=== PATIENT | female | born 1975 | race African-American/Black ===

== ENCOUNTER 2016-09-26 11:31 | Inpatient (IN) | payer OTHER ==
[~2016-09-26] VITALS: Wt 58.6 kg
[2016-09-26] VITALS (482 sets, daily range): BP systolic 119–133; BP diastolic 86–98; PULSE 75–86; TEMP 98.5–99.3; O2SAT 76–100
[~2016-09-26 11:31] MED LIST: LEXAPRO 10MG10 MG PO; MELAT3MGTAB
[2016-09-26 12:17] LABS: GRAN # 2.3 (1.4-6.5); GRAN % 76.6 % (42.2-75.2); LYMPH # 0.4 (1.2-3.4); LYMPH % 13.7 % (20.0-51.0); MEAN CELL VOLUME 89 fl (80.0-100.0); MEAN CORPUSCULAR HGB CONC 34 g/dl (33.0-37.0); MEAN PLATELET VOLUME 8.7 fl (7.4-10.4); MONO # 0.2 (0.1-0.6); PLATELET COUNT 212 K/mm3 (130-400); RED BLOOD COUNT 3.65 M/mm3 (4.10-5.30); REDCELL DISTRIBUTION WIDTH-CV 16.6 % (11.5-14.5)
[2016-09-26 12:19] LABS: HEMATOCRIT 32.5 % (37.0-47.0); HEMOGLOBIN 10.9 g/dl (12.5-16.0); MEAN CORPUSCULAR HEMOGLOBIN 30 pg (27.0-31.0)
[2016-09-26 12:22] LABS: PH 5 (5-8); SQUAMOUS EPITHELIAL 0-2 /hpf; URINE APPEARANCE Hazy; URINE BACTERIA None Seen /hpf; URINE BILIRUBIN Negative (NEGATIVE); URINE BLOOD 2+ (NEGATIVE); URINE COLOR Yellow; URINE GLUCOSE Negative (NEGATIVE); URINE KETONE 2+ (NEGATIVE); URINE RBC 0-2 /hpf; URINE UROBILINOGEN Negative (NEGATIVE); URINE WBC 0-2 /hpf
[2016-09-26] MEDS ORDERED: MINIPRESS2 MG (12:29)
[2016-09-26] MEDS ORDERED: DESYREL 50MG50 MG PO (12:30)
[2016-09-26 12:31] LABS: AMPHETAMINE URINE NEGATIVE; BARBITURATES URINE NEGATIVE; BENZODIAZEPINES URINE NEGATIVE; BUPRENORPHINE URINE NEGATIVE; METHADONE URINE NEGATIVE; OPIATES URINE NEGATIVE; OXYCODONE URINE NEGATIVE; PHENCYCLIDINE URINE NEGATIVE; PROPOXYPHENE URINE NEGATIVE; THC CANNABINOIDS URINE NEGATIVE
[2016-09-26] MEDS ORDERED: WELLBUTRIN SR100 M1 PO (12:31)
[2016-09-26 12:32] LABS: ADJUSTED CALCIUM 8.2 mg/dL (8.4-10.2); ALANINE AMINOTRANSFERASE 21 U/L (9-52); ALBUMIN 4.5 gm/dL (3.5-5.0); ALKALINE PHOSPHATASE 90 U/L (50-136); ANION GAP 24 mmol/L (7-16); BILIRUBIN,TOTAL 0.6 mg/dL (0.0-1.0); BLOOD UREA NITROGEN 16 mg/dL (7-17); CALCIUM 8.6 mg/dL (8.4-10.2); CARBON DIOXIDE 16 mmol/L (22-30); CHLORIDE 99 mmol/L (98-107); CREATININE, serum 0.72 mg/dL (0.52-1.25); GLUCOSE 71 mg/dL (74-106); POTASSIUM 3.5 mmol/L (3.4-5.0); SODIUM 139 mmol/L (137-145); TOTAL PROTEIN 8.2 gm/dL (6.4-8.2)
[2016-09-26 12:34] LABS: ACETAMINOPHEN < 10 ug/mL (10-30); SALICYLATE < 1.0 mg/dL
[2016-09-26 13:55] LABS: ARTERIAL BLD GAS O2 SATURATION 92.8 % (92-100); ARTERIAL BLD GAS TCO2 CT 17.2; ARTERIAL BLOOD GAS BASE EXCESS -9.1 (-2-2); ARTERIAL BLOOD GAS HCO3 16.2 meq/L (22-26); ARTERIAL BLOOD GAS PHT 7.31 C (7.35-7.45); ARTERIAL BLOOD GAS PO2 83.7 mmHg (80-100); ARTERIAL BLOOD GAS PO2T 83.7 (80-100); ARTERIAL BLOOD GAS pH 7.31 (7.35-7.45); OXYHEMOGLOBIN 89.8 %
[2016-09-26 13:56] LABS: ATS? YES
[2016-09-27] VITALS (540 sets, daily range): BP systolic 113–131; BP diastolic 69–83; PULSE 69–89; TEMP 98.7–100.2; O2SAT 95–100
[2016-09-27 05:05] LABS: BASO % 0.6 % (0.0-2.0); EOS % 0.9 % (0-4.0); GRAN # 1.3 (1.4-6.5); GRAN % 39.9 % (42.2-75.2); LYMPH # 1.6 (1.2-3.4); LYMPH % 49.2 % (20.0-51.0); MEAN CELL VOLUME 90 fl (80.0-100.0); MEAN CORPUSCULAR HGB CONC 33 g/dl (33.0-37.0); MONO # 0.3 (0.1-0.6); MONO % 9.1 % (1.7-9.3); PLATELET COUNT 179 K/mm3 (130-400); RED BLOOD COUNT 3.04 M/mm3 (4.10-5.30); REDCELL DISTRIBUTION WIDTH-CV 16.5 % (11.5-14.5); WHITE BLOOD COUNT 3.3 K/mm3 (4.8-10.8)
[2016-09-27 05:06] LABS: HEMATOCRIT 27.2 % (37.0-47.0); HEMOGLOBIN 8.9 g/dl (12.5-16.0); MEAN CORPUSCULAR HEMOGLOBIN 29 pg (27.0-31.0)
[2016-09-27 05:14] LABS: CALCIUM 7.8 mg/dL (8.4-10.2); CREATININE, serum 0.83 mg/dL (0.52-1.25); POTASSIUM 3.6 mmol/L (3.4-5.0)
== END 2016-09-27 11:20 | disposition home or self-care (01) | DRG 917 ==
LOC: COL.ER 11:31 → ICU 13:38
PROVIDERS: Emergency Medicine; Family Medicine; Nurse Practitioner
DX: T43.212A Poisoning by selective serotonin and norepinephrine reuptake inhibitors, intentional self-harm, initial encounter (principal); G92 Toxic encephalopathy; E87.2 Acidosis; T51.0X2A Toxic effect of ethanol, intentional self-harm, initial encounter; F32.9 Major depressive disorder, single episode, unspecified; F10.129 Alcohol abuse with intoxication, unspecified; Y90.8 Blood alcohol level of 240 mg/100 ml or more
CPT/HCPCS: 99223-AI; 99239; J1650; J2405; J3411; J3475; J7030

== ENCOUNTER 2017-07-10 16:11 | Emergency (ER) | payer OTHER ==
[~2017-07-10 16:11] MED LIST changes: +DESYREL 50MG50 MG PO; +MINIPRESS2 MG; +WELLBUTRIN SR100 M1 PO
[2017-07-10 16:29] LABS: BASO % 0.8 % (0.0-2.0); EOS % 0.5 % (0-4.0); GRAN # 1.3 (1.4-6.5); GRAN % 33.6 % (42.2-75.2); LYMPH % 53.1 % (20.0-51.0); MEAN CELL VOLUME 89 fl (80.0-100.0); MEAN CORPUSCULAR HGB CONC 34 g/dl (33.0-37.0); MEAN PLATELET VOLUME 8.8 fl (7.4-10.4); MONO # 0.4 (0.1-0.6); MONO % 11.7 % (1.7-9.3); PLATELET COUNT 286 K/mm3 (130-400); RED BLOOD COUNT 3.06 M/mm3 (4.10-5.30); REDCELL DISTRIBUTION WIDTH-CV 18.5 % (11.5-14.5)
[2017-07-10 16:30] LABS: HEMATOCRIT 27.3 % (37.0-47.0); HEMOGLOBIN 9.2 g/dl (12.5-16.0); MEAN CORPUSCULAR HEMOGLOBIN 30 pg (27.0-31.0)
[2017-07-10 16:41] LABS: ALANINE AMINOTRANSFERASE 20 U/L (9-52); ALBUMIN 3.6 gm/dL (3.5-5.0); ALKALINE PHOSPHATASE 54 U/L (50-136); ANION GAP 13 mmol/L (7-16); AST,SGOT 50 U/L (15-37); BILIRUBIN,TOTAL 0.2 mg/dL (0.0-1.0); BLOOD UREA NITROGEN 10 mg/dL (7-17); CALCIUM 7.9 mg/dL (8.4-10.2); CARBON DIOXIDE 25 mmol/L (22-30); CHLORIDE 106 mmol/L (98-107); CREATININE, serum 0.79 mg/dL (0.52-1.25); GLUCOSE 103 mg/dL (74-106); POTASSIUM 3.8 mmol/L (3.4-5.0); SODIUM 143 mmol/L (137-145); TOTAL PROTEIN 7.1 gm/dL (6.4-8.2)
[2017-07-10 16:55] LABS: TROPONIN-I < 0.012 ng/mL (0.000-0.034)
[2017-07-10 16:56] LABS: ALCOHOL(ethanol),MEDICAL 381 mg/dL
[2017-07-10 18:30] VITALS: BP 109/76; PULSE 101; TEMP 99.2
== END 2017-07-10 18:00 | disposition left against medical advice (07) ==
LOC: COL.ER 16:11
PROVIDERS: Emergency Medicine
DX: F10.129 Alcohol abuse with intoxication, unspecified (principal); Y90.8 Blood alcohol level of 240 mg/100 ml or more